=== PATIENT | male | born 2000 | race Caucasian/White ===

== ENCOUNTER 2020-08-02 11:31 | Emergency (ER) | payer BC ==
[~2020-08-02] VITALS: Wt 90.7 kg
== END 2020-08-02 12:44 | disposition home or self-care (01) ==
LOC: ED 11:31
DX: S61.012A Laceration without foreign body of left thumb without damage to nail, initial encounter (principal); W26.0XXA Contact with knife, initial encounter; Y93.89 Activity, other specified; Y92.89 Other specified places as the place of occurrence of the external cause; Y99.9 Unspecified external cause status